=== PATIENT | male | born 1970 | race Two or more races ===

== ENCOUNTER 2019-12-24 12:42 | Emergency (ER) | payer MEDICAID ==
[~2019-12-24] VITALS: Ht 165.1 cm; Wt 72.6 kg
[2019-12-24 13:00] VITALS: BP 157/96
--- NOTE | 2019-12-24 13:52 | NUR ---
Patient discharged to home in stable condition. Written and verbal after care instructions given. Patient verbalizes understanding of instruction.
== END 2019-12-24 13:52 | disposition home or self-care (01) ==
LOC: ER 12:46
DX: R05 Cough (principal); R51 Headache; J02.9 Acute pharyngitis, unspecified; R19.7 Diarrhea, unspecified; Z20.828 Contact with and (suspected) exposure to other viral communicable diseases
CPT/HCPCS: 99283; C9803; U0003